=== PATIENT | male | born 1965 | race Caucasian/White ===

== ENCOUNTER 2017-08-11 09:24 | Day surgery (SDC) | payer OTHER ==
[2017-08-11] MEDS ORDERED: FENTAnyl 50 MCG/ML VIAL (11:43)
[2017-08-11] MEDS ORDERED: MIDAZOLAM 1 MG/ML 2 ML INJ ×2 (11:43)
== END 2017-08-11 12:07 | disposition home or self-care (01) ==
LOC: GIL 09:24
DX: Z12.11 Encounter for screening for malignant neoplasm of colon (principal); D12.6 Benign neoplasm of colon, unspecified; K64.8 Other hemorrhoids; E11.9 Type 2 diabetes mellitus without complications
CPT/HCPCS: 45385; 82962; 88305